=== PATIENT | female | born 1940 | race Caucasian/White ===

== ENCOUNTER 2022-01-25 06:54 | Emergency (ER) | payer MEDICARE, SELFPAY ==
[2022-01-25] VITALS (33 sets, daily range): BP systolic 82–159; BP diastolic 65–93; PULSE 80–112; RESP 12–32; TEMP 36.1–36.8; O2SAT 93–100
--- NOTE | ~2022-01-25 | CT_ITS ---
EXAMINATION: CT abdomen pelvis wo con DATE: 01/25/2022 10:01 INDICATION: Abdominal pain, diarrhea and weight loss TECHNIQUE: Computed tomography (CT) of the abdomen and pelvis was performed without intravenous contr ast. The dose-length product was 246.65 mGy-cm. Automated exposure control and iterative reconstructi on technique were employed. COMPARISON: CT dated 04/26/2012. FINDINGS: There is a large hiatal hernia with organoaxial volvulus. There is a new 9 mm right lower l obe nodule with adjacent linear opacities. This may represent atelectasis/scarring, although malignan cy is not excluded. No significant pleural or pericardial effusion. There are gallstones with gallbladder wall thickening and possible trace pericholecystic fluid. There is abnormal thickening of the colon and rectum with possible pneumatosis of the sigmoid colon. There is mild diffuse mesenteric edema. There is trace ascites in the upper abdomen surrounding the liver. The kidneys, adrenal glands and pancreas are unremarkable. Spleen is normal. There is atherosclerosi s and ectasia of the aorta without aneurysm. No lymphadenopathy is seen. IMPRESSION: 1. Diffuse abnormal thickening of the colon and rectum with possible pneumatosis of the sigmoid colon . Mild diffuse mesenteric edema. Differential diagnosis includes colitis secondary to infection, infl ammatory bowel disease and ischemia. 2: Cholelithiasis with gallbladder wall thickening and possible trace pericholecystic fluid. Cannot e xclude cholecystitis. 3: Large hiatal hernia with organoaxial volvulus. 4: New 9 mm right lower lobe nodule. Recommend follow-up low dose CT chest in 3 months or follow-up PET/CT examination when the patient's condition permits. Reviewed, dictated and finalized at location B. IMPRESSION: 1. Diffuse abnormal thickening of the colon and rectum with possible pneumatosi s of the sigmoid colon. Mild diffuse mesenteric edema. Differential diagnosis i ncludes colitis secondary to infection, inflammatory bowel disease and ischemia . 2: Cholelithiasis with gallbladder wall thickening and possible trace perichole cystic fluid. Cannot exclude cholecystitis. 3: Large hiatal hernia with organoaxial volvulus. 4: New 9 mm right lower lobe nodule. Recommend follow-up low dose CT chest in 3 months or follow-up PET/CT examination when the patient's condition permits.
--- NOTE | ~2022-01-25 | US_ITS ---
US abdomen limited INDICATION: Abdomen pain PROCEDURE: Realtime right upper abdominal ultrasound. COMPARISON: CT dated 01/25/2022 FINDINGS: The pancreas is not visualized. There is trace ascites. Liver echotexture is normal withou t focal mass or intrahepatic biliary dilatation. There is normal directional flow in the portal vein . Gallbladder is distended containing stones with gallbladder wall thickening and trace pericholecystic fluid. Common bile duct measures 9 mm. No sonographic Fontenot's sign. IMPRESSION: 1: Cholelithiasis with gallbladder wall thickening and trace pericholecystic fluid. Mildly dilated co mmon bile duct measuring 9 mm. Consider cholecystitis in the appropriate clinical setting. Reviewed, dictated and finalized at location B. IMPRESSION: 1: Cholelithiasis with gallbladder wall thickening and trace pericholecystic fl uid. Mildly dilated common bile duct measuring 9 mm. Consider cholecystitis in the appropriate clinical setting.
--- NOTE | 2022-01-25 07:09 | ED.GENADULT ---
HPI - General Adult General Chief complaint: Weakness Stated complaint: weakness History of Present Illness HPI narrative: 81-year-old female presenting to the emergency department from a local assisted living for evaluation of worsening generalized weakness. Daughter felt that the patient was dehydrated. Patient did have a ground-level fall this morning during which she lowered herself to the ground and denies any pain or injury. Patient had declined any pain or complaints. When patient's daughter arrived the patient ultimately did admit to having decreased p.o. intake over the last week, diarrhea for the last few days and lower abdominal pain. Patient does have a a known hiatal hernia. Related Data Allergies Allergy/AdvReac Type Severity Reaction Status Date / Time valdecoxib Allergy Severe mouth Verified 01/25/22 07:26 sores, tongue swelling HYDROCODONE BIT Allergy Severe confusion Uncoded 01/25/22 07:26 PMFSH Past Medical History Medical History Age-related osteoporosis without current pathological fracture [id number] deficiency Chronic fatigue, unspecified Chronic GERD Generalized psoriasis HH (hiatus hernia) Hypothyroidism, unspecified Iron deficiency anemia Unspecified dementia without behavioral disturbance Family History Family History Father Hypertension Family history of arthritis Mother Hypertension Family history of arthritis Other Family history of malignant neoplasm Social History Social History Smoking status: Never smoker Alcohol intake: never Gender identity (if verbalized by the patient): Female Exam Narrative: APPEARANCE: Well appearing, no pain, no distress, well-nourished. HEAD: normocephalic, atraumatic. EYES: PERRLA/EOMI, conjunctivae clear. NOSE: Normal no drainage THROAT: Pharynx clear, no exudate. NECK: Supple. No adenopathy, no masses. RESPIRATORY: Airway patent, respirations nonlabored. Clear to auscultation bilaterally, no rales, rhonchi, wheezing. CARDIOVASCULAR: Regular rate and rhythm without murmurs rubs or gallops. ABDOMINAL: Soft, normal bowel sounds, bilateral lower abdominal tenderness to palpation. MUSCULOSKELETAL: Moves all extremities. Strength/ROM intact, No edema, No calf tenderness. NEURO: Alert. Cranial nerves II through XII intact. Grossly intact SKIN: Warm, dry. Normal Color PSYCHIATRIC: Normal affect/mood. Course Course Emergency Course: Patient states that her daughter was concerned that she was dehydrated. Patient was treated with a 500 mL bolus of normal saline. Patient's potassium was 3.2 and this was replaced orally. UA shows no evidence of infection. Patient was able to ambulate in the emergency department without issue. Reevaluation(s) Reevaluation #1: Dr. Narayan at [facility] felt that the hiatal hernia was too large and needed to be transferred to a tertiary care center if this was indeed the cause of her symptoms. He also felt that her symptoms were likely due to the underlying colitis. Further colitis ischemic versus infectious was on the differential. Patient's lactic acid is not elevated. Discussed with GI at [facility] and they did not feel that this was a GI issue, they felt with no definitive stone identified on ultrasound or CT scan that this was most likely not an obstructive issue but was likely cholecystitis. Case was discussed with Dr. Shook at [facility] and patient was accepted for transfer. Patient will be an ED to ED transfer and Dr. Mcconnell was the accepting physician. Patient was treated with Zosyn prior to transfer. Patient and family were updated on the plan for transfer. All questions and concerns were addressed. Reevaluation #2: Patient was accepted by the surgeon due to her time critical diagnoses. Transfer services from [facility] mike
[2022-01-25 07:21] LABS: Hemoglobin 14.5 g/dL (12.0-15.0); Immature Platelet Fraction Pct 15.8 % (0.9-11.2); Mean Corpuscular HGB Conc 33.7 g/dl (32-36); Mean Corpuscular Hemoglobin 29.1 pg (26-34); Mean Corpuscular Volume 86.2 fl (80-100); Mean Platelet Volume 10.3 fl (7.4-10.4); Platelet Count Result 177 k/mm3 (150-375); Red Blood Count 4.99 M/mm3 (4.2-5.4); Red Cell Distribution Width 15.4 % (11.5-14.5); White Blood Count 8.7 K/mm3 (4.5-10.0)
[2022-01-25] MEDS: SODIUM CHLORIDE 0.9% IV 500 ML 999 ML IV CONT (07:26)
[2022-01-25 07:37] LABS: Alanine Aminotransferase 38 U/L (6-35); Albumin Level 3.4 g/dL (3.5-5.1); Alkaline Phosphatase 569 U/L (38-126); Anion Gap 7 mmol/L (8-16); Aspartate Amino Transferase 74 U/L (14-36); Bilirubin,Total 2.2 mg/dL (0.2-1.3); Blood Urea Nitrogen 26 mg/dL (7-17); Calcium 8.4 mg/dL (8.4-10.2); Carbon Dioxide 28 mmol/L (22-30); Chloride 95 mmol/L (98-107); Estimated CRCL calculation 43 ml/min; Estimated Glomerular Filt Rate > 60; Glucose 90 mg/dL (65-110); Potassium 3.2 mmol/L (3.4-5.0); Sodium 130 mmol/L (137-145)
[2022-01-25] MEDS: POTASSIUM CHLORIDE 20 MEQ PACKET (FOR LIQUID) 40 MEQ PO (07:57)
--- NOTE | 2022-01-25 08:11 | PC.NURSE ---
Up to commode and had a moderate amount loose stool. Pt reports she has had diarrhea for days .
[2022-01-25 08:17] LABS: Band Neutrophils Percent 49 % (0-6); Eosinophils Absolute Manual 0.08 K/mm3 (0.02-0.5); Eosinophils Percent Manual 1 % (0-4); Lymphocytes Absolute Manual 0.78 K/mm3 (1.1-4.5); Metamyelocytes Percent 12 %; Monocytes Absolute Manual 0.69 K/mm3 (0.1-0.90); Monocytes Percent Manual 8 % (3-9); Neutrophils Absolute Manual 6.09 K/mm3 (1.7-7.2); Neutrophils Percent Manual 21 % (46-73); Total Cells Counted 100
[2022-01-25 08:18] LABS: Platelet Clumps Present
[2022-01-25 08:19] LABS: Toxic Granulation Present (NORMAL)
[2022-01-25 08:28] LABS: Appearance Urine Clear (Clear); Bilirubin Urine Negative (Negative); Blood Urine Negative (Negative); Color Urine Yellow (Yellow); Glucose Urine UA Negative (Negative); Ketones Urine Trace mg/dL (Negative); Leukocyte Esterase Ur Negative LEU/UL (Negative); Nitrate Urine Negative (Negative); Protein Urine Negative (Negative); pH Urine 6.5 (5.0-9.0)
[2022-01-25 08:29] LABS: Platelet Estimate Adequate (Adequate)
[2022-01-25 08:31] LABS: RBC Urine 0-2 /hpf (0-2); WBC Urine 0-3 /hpf
[2022-01-25 08:34] LABS: Add Urine Microscopic? YES
[2022-01-25 12:12] LABS: Lactic Acid Reflex 0.8 mmol/L (0.7-2.0)
== END 2022-01-25 15:10 | disposition short-term general hospital (02) ==
PROVIDERS: Emergency Provider Emergency Medicine; PCP Family Medicine
DX: K44.9 Diaphragmatic hernia without obstruction or gangrene (principal); K80.00 Calculus of gallbladder with acute cholecystitis without obstruction; E88.01 Alpha-1-antitrypsin deficiency; M81.0 Age-related osteoporosis without current pathological fracture; R53.82 Chronic fatigue, unspecified; K21.9 Gastro-esophageal reflux disease without esophagitis; E03.9 Hypothyroidism, unspecified; D50.9 Iron deficiency anemia, unspecified; R91.1 Solitary pulmonary nodule
CPT/HCPCS: 36415; 51701; 74176; 76705; 80053; 81001; 83605; 85025; 85055; 96365; 99285; A9270; J2543; J7040